=== PATIENT | male | born 1965 | race Caucasian/White ===

== ENCOUNTER 2025-08-16 11:04 | Emergency (ER) | payer BC, SELFPAY ==
[2025-08-16 11:07] VITALS: BP 156/98
--- NOTE | 2025-08-16 12:29 | ED.GENMED ---
History of Present Illness
General
Chief Complaint: Visual Problem
Time Seen by Provider: 08/16/25 12:29
History of Present Illness
History of Present Illness:
FOCUSED PAST MEDICAL HISTORY
- Myasthenia gravis, high blood pressure
REVIEW OF OLD RECORDS
- The patient had lap prateek here in 2012
Note:
CHIEF COMPLAINT(S)
Blurred vision, drooping of the right eyelid, and worsening visual symptoms.
HISTORY OF PRESENT ILLNESS
The patient is a 60-year-old male with a past medical history of myasthenia gravis diagnosed 17 years ago. He was treated with medication, specifically Mestinon (Pyridostigmine), for a few months before discontinuing the medication following
resolution of symptoms and experiencing a perforated colon during the treatment period. The condition was considered dormant since then. The symptoms began to recur recently, starting on Thursday with a sensation of fogginess, progressing to worsened
visual symptoms, including double vision and right-sided eyelid ptosis, by Thursday. The patients primary care physician consulted a neurologist and initiated treatment with steroids for three days, although the patient reports no improvement in
symptoms. The patient describes increased blurring and double vision, especially when not using corrective lenses. The patient is concerned about recurrence of myasthenia gravis, but is open to further diagnostic evaluation to rule out other
conditions. Per the patients son, the patients right eye appeared droopy, consistent with previous episodes.
PAST MEDICAL AND SURGICAL HISTORY
The patient has a past diagnosis of myasthenia gravis and a history of a perforated colon, related to past treatment with Pyridostigmine, approximately 17 years ago.
CHRONIC MEDICAL CONDITIONS SIGNIFICANTLY AFFECTING CARE
History of myasthenia gravis.
REVIEW OF SYSTEMS
- Visual System: Blurred vision, double vision, especially on the right side.
- Neurological System: Right-sided eyelid drooping.
- General: No headache, no fever, patient retains good energy.
PHYSICAL EXAM
General: Alert, no acute distress.
Skin: Warm, dry.
Head: Normocephalic, atraumatic.
Neck: Supple, trachea midline.
Eyes, Ears, Nose, Mouth, and Throat: Oral mucosa moist. Corrected vision right eye is 20/20, 20/30 on the left. Perhaps a subtle right upper lid lag but no facial asymmetry. Some saccadic nystagmus as well.
Cardiovascular: Normal peripheral perfusion, no edema.
Respiratory: Respirations are non-labored.
Gastrointestinal: Abdomen non-distended.
Back: Normal range of motion, normal alignment.
Musculoskeletal: Normal range of motion, normal strength.
Neurological: Alert and oriented to person, place, time, and situation. No focal neurological deficit observed. Coordination intact with [id number] testing. Excellent strength and sensation in all extremities.
Psychiatric: Cooperative, appropriate mood & affect.
PROBLEM LIST
Acute:
- Blurred vision and double vision.
- Right eyelid ptosis.
- Recent worsening of visual symptoms.
Chronic:
- History of myasthenia gravis.
PLAN
Discuss the case with the attending neurologist to determine the appropriate diagnostic and therapeutic approach. Consider further neurological evaluation, including potential tests for myasthenia gravis recurrence and other differential diagnoses.
DIFFERENTIAL DIAGNOSIS
The Differential Diagnosis includes, in no particular order and is not limited to:
- Myasthenia gravis exacerbation or recurrence.
- [place] palsy.
- Cranial nerve palsies.
- Ocular myopathy.
- Intracranial neoplasm.
- Thyroid eye disease.
- Multiple sclerosis.
- Temporal arteritis.
- Stroke or transient ischemic attack.
- Medication side effects.
- Discussed case with Dr. Rendon
- Initially considered steroids or pyridostigmine and recommended steroids as patient potentially had complication of repaired thickening in the past
- Patient unhappy with continuing steroid as this has not improved anything
- Decision was made with shared decision making the patient like to try to pyridostigmine for 10 days
- I have given him contact information for local neurologist
DIAGNOSIS
Vision change
Possible exacerbation of myasthenia gravis
Past History
Past History
ED Past Medical History: HTN (not medicated), Other (myasthenia gravis) and Other (diverticular colon)
ED Past Surgical History: Bowel resection (sigmoidectomy for perforated colon unknown etiology)
Social History
Tobacco: Non-smoker
Alcohol: Occasional
Phy Exam
Physical Exam
Physical Exam:
See HPI
Course
Vital Signs
Initial and Last Documented VS:
Initial Vital Signs
Temp Pulse Resp BP Pulse Ox
36.9 C 64 16 156/98 98
08/16/25 11:07 08/16/25 11:07 08/16/25 11:07 08/16/25 11:07 08/16/25 11:07
Last Documented Vital Signs
Temp Pulse Resp BP Pulse Ox
36.9 C 65 17 157/104 96
08/16/25 13:15 08/16/25 13:15 08/16/25 13:15 08/16/25 13:15 08/16/25 13:15
*Pulse Oximetry
SaO2: 98
Oxygen Mode of Delivery: Room air
Patient hypoxic: no
*Critical Care Note
Total Time (30-74mins, 75-104mins- exclusive of procedures): Not Applicable
ED Attending Note
-
Portions of this chart may have been created with voice recognition software.� Occasional wrong word or��sound alike� substitutions may have occurred due to the inherent limitations of voice recognition software.
Discharge Plan
Departure
Patient Disposition: Home (Routine Discharge)
Date of Disposition: 08/16/25
Time of Disposition: 13:04
Patient with high blood pressure during this ER visit?: Yes
Discharge Problem:
Change in vision
Instructions: Double Vision (DC)
Prescriptions:
New
pyridostigmine bromide 60 mg tablet
60 mg PO TID Qty: 30 0RF
No Action
Augmentin 875 mg/125 mg:
1 tab PO BID
Percocet:
1 tab PO Q4 PRN (Reason: pain)
Patient Comments:
5/325 strength
Referrals:
Riley Rendon MD [Active, Neurology]
Activity Restrictions/Additional Instructions:
I sent a prescription for pyridostigmine (Mestinon) to the [facility] pharmacy in [place]. I have also given you the contact information for a local neurologist that I spoke to, Dr. Rendon. Please call their office to arrange follow-up.
Interventions
Interventions:
*Risk Screen - Suicide Last Done: 08/16/25 12:23
*General Assessment Last Done: 08/16/25 13:27
*Neglect/Abuse Screening Last Done: 08/16/25 13:27
*ED COVID-19 Vaccine History Last Done: 08/16/25 13:27
*ED Influenza Vaccine History Last Done: 08/16/25 13:27
[facility] Fall Risk Assessment Tool Last Done: 08/16/25 12:37
*Nursing Disposition Last Done: 08/16/25 13:27
ED- Neurological Assessment Last Done: 08/16/25 12:37
ED-EENT Assessment Last Done: 08/16/25 12:40
ED Swallowing Screen Last Done: 08/16/25 13:00
Discharge Date and Time
Discharge Date/Time: 08/16/25 13:29
Print Language: BRUNEIAN
[2025-08-16 12:37] VITALS: BMI 31.0
[2025-08-16 13:15] VITALS: BP 157/104
== END 2025-08-16 13:29 | disposition home or self-care (01) ==
LOC: EMR 11:04
PROVIDERS: EMERGENCY PHYSICIAN Emergency Medicine; FAMILY PHYSICIAN Family Medicine
DX: H53.2 Diplopia (principal); G70.00 Myasthenia gravis without (acute) exacerbation; I10 Essential (primary) hypertension; Z90.49 Acquired absence of other specified parts of digestive tract
CPT/HCPCS: 99282